=== PATIENT | male | born 1995 | race Caucasian/White ===

== ENCOUNTER 2019-05-08 20:16 | Emergency (ER) | payer SELFPAY ==
[~2019-05-08] VITALS: Ht 177.8 cm; Wt 100.7 kg
[2019-05-08] MEDS ORDERED: Amoxicillin875 MG PO (20:29)
== END 2019-05-08 20:32 | disposition home or self-care (01) ==
LOC: ER 20:16
DX: H66.91 Otitis media, unspecified, right ear (principal); Z88.8 Allergy status to other drugs, medicaments and biological substances
CPT/HCPCS: 99282

== ENCOUNTER → 2019-05-27 | Outpatient (CLI) | payer SELFPAY ==
[~2019-05-27] MED LIST: Amoxicillin875 MG PO
== END | disposition home or self-care (01) ==
LOC: LAB 14:20 → LAB SHORT 14:20
DX: H65.199 Other acute nonsuppurative otitis media, unspecified ear (principal)
CPT/HCPCS: 87070; 87205

== ENCOUNTER → 2023-11-28 | Emergency (ER) | payer BC ==
[~2023-11-28] VITALS: Ht 175.3 cm; Wt 96.2 kg
[~2023-11-28] MED LIST changes: +DiphenhydrAMINE HCl 50 MG/ML 1ML Vial IV ONE; +Ketorolac Tromethamine 30mg Vial IV ONE; +NS 1,000 ML IV SCH; +Prochlorperazine Edisylate 10 mg Vial IV ONE
[2023-11-28 20:09] VITALS: BP 137/78
== END ==
LOC: ER 20:02
DX: R51.9 Headache, unspecified (principal); Z88.8 Allergy status to other drugs, medicaments and biological substances
CPT/HCPCS: 70450; J0780; J1200; J1885; J7030

== ENCOUNTER 2024-10-24 14:27 | Emergency (ER) | payer OTHER, BC ==
[~2024-10-24] VITALS: Ht 175.3 cm; Wt 96.2 kg
[~2024-10-24 14:27] MED LIST changes: -DiphenhydrAMINE HCl 50 MG/ML 1ML Vial IV ONE; -Ketorolac Tromethamine 30mg Vial IV ONE; -NS 1,000 ML IV SCH; -Prochlorperazine Edisylate 10 mg Vial IV ONE
[2024-10-24 15:09] VITALS: BP 145/89
== END 2024-10-24 17:10 | disposition home or self-care (01) ==
LOC: ER 14:27
DX: S90.414A Abrasion, right lesser toe(s), initial encounter (principal); Z88.1 Allergy status to other antibiotic agents; W24.0XXA Contact with lifting devices, not elsewhere classified, initial encounter
CPT/HCPCS: 73630